=== PATIENT | male | born 2000 ===

== ENCOUNTER 2024-12-25 12:15 | Inpatient (IN) | payer OTHER, SELFPAY ==
[2024-12-25 12:50] VITALS: BMI 23.0
[2024-12-25 12:51] VITALS: BP 124/63; PULSE 63; RESP 18; TEMP 36.6; O2SAT 96
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
--- OUTSIDE RECORDS SUMMARY | 2024-12-25 13:08 | XMS_ITS | Clinical Summary ---
Author Organization [facility] Address [address] [place] [address] Phone Care Team Providers Care Commercial Insulator Name Role Phone Physician, Pcp Unknown Primary Care Provider Cesia vailable Allergies No known active allergies Medications No known medications Encounters Date Type Department Care Team Description 12/25/2024 1:38 AM EDT - 12/25/2024 12:11 PM EDT Emergency [facility] Emergency [address] [place] [address] Silvia Padilla MD Cauchon, Matthew C, Suicidal ideations (Primary Dx) Discharge Disposition: Another Health Care Institution Not Defined from Last 3 Months Social History Tobacco Use Types Packs/Day Years Used Date Smoking Tobacco: Never Assessed Sex and Gender Information Value Date Recorded Sex Assigned at Not on file Legal Sex Male 1:35 AM EDT Gender Identity Not on file Sexual Orientation Not on file Last Filed Vital Signs Vital Sign Reading [...] Mass Index 24.41 12/25/2024 1:57 AM EDT Plan of Treatment Health Maintenance Due Date Last Done Comments Meningococcal B Vaccine (1 of 2 - Standard) 2018 DTaP,Tdap,and Td Vaccines (7 - Td or Tdap) 01/10/2024 01/09/2014, 11/22/2007, 06/17/2004, Additional history exists COVID-19 Vaccine ( season) 2024 Depression Screening 12/25/2024 HIV Screening 12/25/2024 Hepatitis C Screening 12/25/2024 Social Influencers of Health Screening 12/25/2024 Influenza Vaccine (Season Ended) 2025 04/30/2020, 06/20/2019, 06/27/2011, Additional history exists Hepatitis B Vaccines Completed 06/26/2003, 04/15/2003, 02/05/2003, Additional history exists HIB Vaccines Completed 12/22/2003, 06/13, 04/15/2003, Additional history exists Pneumococcal Vaccine: Pediatrics (0 to 5 Years) and At-Risk Patients (6 to 64 Years) Completed 11/18/2004, 06/26/2003, 04/15/2003, Additional history exists Varicella Vaccines Completed 11/22/2007, 12/22/2003 MMR Vaccines Completed 03/13/2008, 12/22/2003 HPV Vaccines Completed 03/30/2017, 01/28/2016 IPV Vaccines Completed 03/30/2017, 06/13, 04/15/2003, Additional history exists Hepatitis A Vaccines Completed 04/05/2018, 03/30/20 17 Meningococcal ACWY Vaccine Completed 06/20/2019, RSV Immunization Patients Under 20 months Aged Out No longer eligible based on patient's age to complete this topic Procedures Procedure Name Priority Date/Time Associated Diagnosis Comments CBC WITH AUTO DIFFERENTIAL STAT 12/25/2024 2:35 AM EDT SALICYLATE LEVEL STAT 12/25/2024 2:35 AM EDT ACETAMINOPHEN LEVEL STAT 12/25/2024 2 :35 AM EDT ETHANOL STAT 12/25/2024 2:35 AM EDT COMPREHENSIVE METABOLIC PANEL STAT 12/25/2024 2:35 AM EDT CBC AND DIFFERENTIAL STAT 12/25/2024 2:35 AM EDT METHADONE SCREEN, URINE STAT 12/25/2024 2:23 AM EDT PHENCYCLIDINE, URINE STAT 12/25/2024 2:23 AM EDT BUPRENORPHINE SCREEN, URINE STAT 12/25/2024 2:23 AM EDT DRUG ABUSE SCREEN 8A PANEL, URINE STAT 12/25/2024 2:23 AM EDT from Last 3 Months Results * (ABNORMAL) CBC auto differential (12/25/2024 2:35 AM EDT) [facility] Signature WBC 8.4 4.8 - 10.8 K/mcL LAB HEMETOLOGY METHOD 12/25/2024 2:42 AM EDT [facility] RBC 4.50 4.50 - 5.50 M/mcL LAB HEMETOLOGY METHOD 12/25/2024 2:42 AM EDT [facility] Hemoglobin 13.4(L) 13.5 - 17.5 g/dL LAB HEMETOLOGY METHOD 12/25/2024 2:42 AM EDT [facility] Hematocrit 38.7(L) 42.0 - 54.0 % LAB HEMETOLOGY METHOD 12/25/2024 2:42 AM EDT [facility] MCV 86.6 79.0 - 98.0 FL LAB HEMETOLOGY METHOD 12/25/2024 2:42 AM EDT [facility] MCH 30.0 27.0 - 32.0 pcg LAB HEMETOLOGY METHOD 12/25/2024 2:42 AM [facility] MCHC 34.6 32.0 - 37.0 g/dL LAB HEMETOLOGY METHOD 12/25/2024 2:42 AM [facility] RDW 11.9 11.0 - 15.0 % LAB HEMETOLOGY METHOD 12/25/2024 2:42 AM [facility] Platelets 209 130 - 400 K/mcL LAB HEMETOLOGY METHOD 12/25/2024 2:42 AM [facility] MPV 11.1(H) 7.0 - 11.0 FL LAB HEMETOLOGY METHOD 12/25/2024 2:42 AM [facility] NRBC 0.0 <1.0 % LAB HEMETOLOGY METHOD 12/25/2024 2:42 AM [facility] NRBC Absolute 0.00 <0.10 K/mcL LAB HEMETOLOGY METHOD 12/25/2024 2:42 AM [facility] Neutrophils Relative 63.8 % LAB HEMETOLOGY METHOD 12/25/2024 2:42 AM [facility] Lymphocytes Relative 30.2 % LAB HEMETOLOGY METHOD 12/25/2024 2:42 AM [facility] Monocytes Relative 4.9 % LAB HEMETOLOGY METHOD 12/25/2024 2:42 AM [facility] Eosinophils Relative 0.5 % LAB HEMETOLOGY METHOD 12/25/2024 2:42 AM [facility] Basophils Relative 0.2 % LAB HEMETOLOGY METHOD 12/25/2024 2:42 AM [facility] Immature Granulocytes Relative 0.4 % LAB HEMETOLOGY METHOD 12/25/2024 2:42 AM [facility] Neutrophils Absolute 5.33 1.50 - 7.00 K/mcL LAB HEMETOLOGY METHOD 12/25/2024 2:42 AM EDT [facility] Lymphocytes Absolute 2.52 1.00 - 5.00 K/[facility] LAB HEMETOLOGY METHOD 12/25/2024 2:42 AM EDT [facility] Monocytes Absolute 0.41 0.20 - 1.00 K/[facility] LAB HEMETOLOGY METHOD 12/25/2024 2:42 AM EDT [facility] Eosinophils Absolute 0.04 0.00 - 0.50 K/[facility] LAB HEMETOLOGY METHOD 12/25/2024 2:42 AM EDT [facility] Basophils Absolute 0.02 0.00 - 0.20 K/[facility] LAB HEMETOLOGY METHOD 12/25/2024 2:42 AM EDT [facility] Immature Granulocytes Absolute 0.03 0.00 - 0.03 K/[facility] LAB HEMETOLOGY METHOD 12/25/2024 2:42 AM EDT [facility] Blood Venous blood specimen / Unknown Venipuncture / Unknown 12/25/2024 2:35 AM EDT 12/25/2024 2:39 AM EDT Silvia Padilla MD LAB BLOOD ORDERABLES Fin al Result [facility] [address] [place] [address], * Ethanol (12/25/2024 2:35 AM EDT) Ethanol Level 6 0 - 10 mg/dL LAB CHEMISTRY METHOD 12/25/2024 3:20 AM EDT [facility] Blood Venous blood specimen / Unknown Venipuncture / Unknown 12/25/2024 2:35 AM EDT 12/25/2024 2:39 AM EDT Silvia Padilla MD LAB BLOOD ORDERABLES Fin al Result Performing Organization Address [facility]/ZIP Co de Phone Number [facility] [address] [place] [address], [place] [phone] * (ABNORMAL) Acetaminophen level (12/25/2024 2:35 AM EDT) Acetaminophen Level <2.0(L) 10.0 - 30.0 mcg/mL LAB CHEMISTRY METHOD 12/25/2024 3:20 AM EDT [facility] Blood Venous blood specimen / Unknown Venipuncture / Unknown 12/25/2024 2:35 AM EDT 12/25/2024 2:39 AM EDT Silvia Padilla MD LAB BLOOD ORDERABLES Fin al Result Performing Organization Address [facility] Co de Phone Number [facility] [address] [place] [address], [place] [phone] * (ABNORMAL) Salicylate level (12/25/2024 2:35 AM EDT) Salicylate Level <1.7(L) 2.0 - 29.0 mg/dL LAB CHEMISTRY METHOD 12/25/2024 3:20 AM EDT [facility] Blood Venous blood specimen / Unknown Venipuncture / Unknown 12/25/2024 2:35 AM EDT 12/25/2024 2:39 AM EDT Silvia Padilla MD LAB BLOOD ORDERABLES Fin al Result Performing Organization Address [facility]/ZIP Co de Phone Number [facility] [address] [place] [address], [place] [phone] * (ABNORMAL) Comprehensive metabolic panel (12/25/2024 2:35 AM EDT) Sodium 140 133 - 145 mmol/L LAB CHEMISTRY METHOD 12/25/2024 3:20 AM EDT [facility] Potassium 3.8 3.5 - 5.5 mmol/L LAB CHEMISTRY METHOD 12/25/2024 3:20 AM [facility] Chloride 108 96 - 110 mmol/L LAB CHEMISTRY METHOD 12/25/2024 3:20 AM [facility] CO2 25 21 - 32 mmol/L LAB CHEMISTRY METHOD 12/25/2024 3:20 AM [facility] Anion Gap 7 3 - 11 LAB CHEMISTRY METHOD 12/25/2024 3:20 AM [facility] Glucose 92 70 - 100 mg/dL LAB CHEMISTRY METHOD 12/25/2024 3:20 AM [facility] BUN 7 5 - 25 mg/dL LAB CHEMISTRY METHOD 12/25/2024 3:20 AM [facility] Creatinine 0.67(L) 0.70 - 1.30 mg/dL LAB CHEMISTRY METHOD 12/25/2024 3:20 AM [facility] eGFR 135 >=60 mL/min/1. 73m2 LAB CHEMISTRY METHOD 12/25/2024 3:20 AM [facility] Comment:Calculation based on the Chronic Kidney Disease Epidemiology Collaboration (CKD-EPI) equation refit without adjustment for race. BUN/Creatinine Ratio 10.4 LAB CHEMISTRY METHOD 12/25/2024 3:20 AM [facility] Calcium 9.8 8.5 - 10.5 mg/dL LAB CHEMISTRY METHOD 12/25/2024 3:20 AM [facility] AST (SGOT) 21 10 - 42 unit/L LAB CHEMISTRY METHOD 12/25/2024 3:20 AM [facility] ALT (SGPT) 22 10 - 60 unit/L LAB CHEMISTRY METHOD 12/25/2024 3:20 AM [facility] Alkaline Phosphatase 52 42 - 121 unit/L LAB CHEMISTRY METHOD 12/25/2024 3:20 AM [facility] Total Protein 7.3 6.0 - 8.0 g/dL LAB CHEMISTRY METHOD 12/25/2024 3:20 AM EDT [facility] Albumin 4.3 3.2 - 5.0 g/dL LAB CHEMISTRY METHOD 12/25/2024 3:20 AM EDT [facility] Total Bilirubin 1.2 0.0 - 1.4 mg/dL LAB CHEMISTRY METHOD 12/25/2024 3:20 AM EDT [facility] Blood Venous blood specimen / Unknown Venipuncture / Unknown 12/25/2024 2:35 AM EDT 12/25/2024 2:39 AM EDT Silvia Padilla MD LAB BLOOD ORDERABLES Fin al Result [facility] [address] [place] [address], [place] [phone] * (ABNORMAL) Drug abuse screen 8a panel, urine (12/25/2024 2:23 AM EDT) Amphetamine Screen, Ur Negative Negative LAB CHEMISTRY METHOD 5 3:05 AM T [facility] Comment:Certain OTC medicati ons containing ephedrine, phenylephrine, pseudoephedrine and phenylpropanolamine can cause false positive results. Barbiturate Screen, Ur Negative Negative LAB CHEMISTRY METHOD 5 3:05 AM EDT [facility] Benzodiazepine Screen, Ur Negative Negative LAB CHEMISTRY METHOD 5 3:05 AM T [facility] Cocaine Screen, Ur Negative Negative LAB CHEMISTRY METHOD 5 3:05 AM [facility] Opiate Screen, Ur Negative Negative LAB CHEMISTRY METHOD 5 3:05 AM [facility] Cannabinoid (THC) Screen, Ur Positive(A ) Negative LAB CHEMISTRY METHOD 5 3:05 AM EDT [facility] Comment:Specimens from patie nts taking pantoprazole sodium (Protonix) have been shown to produce false positive results. Oxycodone Screen, Ur Negative Negative LAB CHEMISTRY METHOD 5 3:05 AM EDT [facility] Fentanyl, Ur Negative Negative LAB CHEMISTRY METHOD 5 3:05 AM EDT [facility] Urine Urine specimen obtained by clean catch procedure / Unknown Non-blood Collection / Unknown 12/25/2024 2:23 AM EDT 12/25/2024 2:38 AM EDT Narrative [facility] - 12/25/2024 3:05 AM EDT [...] ONLY* Silvia Padilla MD LAB URINE ORDERABLES [facility] al Result [facility] [address] [place] [address], * Buprenorphine screen, urine (12/25/2024 2:23 AM EDT) Buprenorphine Screen Urine Negative Negative LAB CHEMISTRY METHOD 12/25/2024 3:05 AM EDT [facility] Urine Urine specimen obtained by clean catch procedure / Unknown Non-blood Collection / Unknown 12/25/2024 2:23 AM EDT 12/25/2024 2:38 AM EDT Narrative [facility] - 12/25/2024 3:05 AM EDT Assay cutoff 5 ng/mL Semi-quantitative assay for screening purposes only. Unconfirmed screening result should not be used for non-medical purposes. *ALTERNATE METHOD CONFIRMATION DONE UPON REQUEST ONLY* Silvia Padilla MD LAB URINE ORDERABLES Fin al Result Performing Organization Address [facility] de Phone Number [facility] [address] [place] [address], [place] [phone] * Methadone, urine (12/25/2024 2:23 AM EDT) Methadone Screen, Urine Negative Negative LAB CHEMISTRY METHOD 12/25/2024 3:05 AM EDT [facility] Comment: Assay cutoff 300 ng/mL [...] ORDERABLES Fin al Result Performing Organization Address [facility] Co de Phone Number [facility] [address] [place] [address], [place] [phone] * Phencyclidine, urine (12/25/2024 2:23 AM EDT) PCP Scrn, Ur Negative Negative LAB CHEMISTRY METHOD 12/25/2024 3:05 AM EDT [facility] Comment: Assay cutoff 25 ng/mL Semi-quantitative assay for screening purposes only. Unconfirmed screening result should not be used for non-medical purposes. *ALTERNATE METHOD CONFIRMATION DONE UPON REQUEST ONLY* Urine Urine specimen obtained by clean catch procedure / Unknown Non-blood Collection / Unknown 12/25/2024 2:23 AM EDT 12/25/2024 2:38 AM EDT us Silvia Padilla MD LAB URINE ORDERABLES Fin al Result [facility] [address] [place] [address], from Last 3 Months Insurance AET[employer] Care Teams Commercial Insulator Relationship Specialty Start Date End Date Physician, Pcp Unknown PCP - General 12/25/24
--- OUTSIDE RECORDS SUMMARY | 2024-12-25 13:08 | XMS_ITS | Clinical Summary ---
Author Organization [address] Address [address] [place] [phone] Care Team Providers Care Rectangular Tank Cooper Name Role Phone Howard Sosa MD Primary Care Prov ider Social History Tobacco Use Types Packs/Day Years Used Date Smoking Tobacco: Never Assessed Sex and Gender Information Value Date Recorded Sex Assigned at Not on file Legal Sex Male 2:09 PM EST Gender Identity Male 08/15/2023 2:54 PM EST Sexual Orientation Not on file Last Filed Vital Signs Vital Sign Reading Time Taken Comments Blood Pressure 159/85 08/15/2023 2:13 PM EST Pulse 87 08/15/2023 2:13 PM EST Temperature 36.6 ??C (97.9 ??F) 08/15/2023 2:13 PM ES T Respiratory Rate 17 08/15/2023 2:13 PM EST Oxygen Saturation 98% 08/15/2023 2:13 PM EST Inhaled Oxygen Concentration - - Weight - - Height - - Body Mass Index - - Plan of Treatment Health Maintenance Due Date Last Done Comments HIV screening 12/11/2015 Hepatitis C screening 2020 DTaP/TDaP Vaccines (7 - Td or Tdap) 01/10/2024 01/09/2014, 11/22/2007, 06/17/2004, Additional history exists Tetanus adult (Td q 10,TDAP once) 01/10/2024 01/09/2014, 11/22/2007, 06/17/2004 Covid-19 vaccine series (1 - 2023-25 season) 2024 Influenza Vaccine Pediatric (Season Ended) 2025 04/30/2020, 06/20/2019, 06/27/2011, Additional history exists Influenza vaccine 04/13/2025 04/30/2020, , 06/27/2011, Additional history exists RSV Immunization (1 - 1-dose 75+ series) 2077 Hepatitis B vaccine series Completed 06/26, 04/15/2003, 02/05/2003, Additional history exists HIB Vaccines Completed 12/22/2003, 06/13, 04/15/2003, Additional history exists Pneumococcal Vaccine (2 - 49 years) Aged Out 11/18/2004, 06/26/2003, 04/15/2003, Additional history exists No longer eligible based on patient's age to complete this topic Varicella Vaccines Completed 11/22/2007, 12/22/2003 MMR Vaccines Completed 03/13/2008, 12/22/2003 HPV vaccine series Completed 03/30/2017, 01/28/2016 IPV Vaccines Completed 03/30/2017, 06/13, 04/15/2003, Additional history exists Hepatitis A Vaccines Completed 04/05/2018, 03/30/20 17 Meningococcal Vaccine Completed 06/20/2019, 015 Rotavirus Vaccines Aged Out No longer eligible based on patient's age to complete this topic Insurance AETNA AET[employer] Care Teams Rectangular Tank Cooper Relationship Specialty Start Date End Date Howard Sosa MD [address] [place] [phone] PCP - General Family Medicine 08/16/23
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
[2024-12-25 20:00] VITALS: BP 150/98; PULSE 71; RESP 16; TEMP 37.2; O2SAT 98
[2024-12-26] MEDS: hydrOXYzine HCL 25 MG TABLET PO ×2 (00:18→09:15)
--- NOTE | 2024-12-26 06:19 | PC.NURSE ---
Patient c/o difficulty sleeping due to his roommate's snoring. Patient was asked if he would be willing to go to [facility] so that another patient from [facility] could be moved up to [facility]. Patient very willing to make the move. Report given to [facility].
[2024-12-26 07:42] VITALS: BP 111/55; PULSE 57; RESP 14; TEMP 36.8; O2SAT 98
--- NOTE | 2024-12-26 08:39 | P.HPPS_ITS ---
HPI Date of Service: 12/26/24 Chief Complaint: SI; autism spectrum disorder Sources of Information: patient interviewed, chart reviewed and crisis/core team assessment reviewed HPI Subjective Notes: Giron Warning and Conditional Voluntary Narrative: Patient is a 24-year-old male with hx of PTSD and autism spectrum disorder, who presented to crisis d/t passive suicidal thoughts secondary to increased depression and anxiety from life stressors. Per crisis report, patient was seen at [facility] due to increased depression, anxiety and passive suicidal thoughts. patient reports multiple life stressors such as him and his girlfriend taking a break, him punching his car steering wheel and breaking his right hand and being financially stable. pt is not currently on any psychiatric medications. He reports poor sleep and appetite. Patient denies HI/AH/AH. Patient reports daily marijuana use; denies any other substance use. During admission assessment, pt presents alert and oriented x3. calm and cooperative. patient reports feeling stressed ; pt stated, there is a lot going on in my life. I broke my hand on November 12 after punching my steering wheel so I can't work because of it. I live alone and my parents are helping me with expenses which I don't like. Also things in my relationship are going downhill because she lives far away . He reports hx of self injurious behavior of head banging and tightening a belt around his neck but removing it . Patient reports poor sleep and appetite. He does not have outpatient psychiatric providers and denies ever taking psychiatric mediations. Pt is requesting to be started on psychiatric medications for mood, sleep and anxiety. Discussed remeron and seroquel; risks/benefits reviewed; pt agreed to trial. Pt would like referral to outpatient psychiatric providers. denies HI/VH/AH. Past Psychiatric History: First inpatient psychiatric hospitalization. Does not have outpatient psychiatric providers. Denies history of psychiatric medications. Medical Evaluation Reviewed: Yes PMFSH Family History: unknown Social History: lives alone. single. no kids. 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 high school diploma. Substance History: smokes marijuana daily Trauma History: yes Diagnostics Vital Signs (24Hr): Vital Signs - 24 hr 12/25/24 12:51 12/25/24 20:00 12/26/24 07:42 Temperature 97.8 F 99.0 F 98.2 F Pulse Rate 63 71 57 Respiratory Rate 18 16 14 Blood Pressure 124/63 150/98 H 111/55 L Pulse Oximetry 96 98 98 Oxygen Delivery Method Room Air Room Air Room Air BMI result Body Mass Index 23.0 Meds/Allergies Meds Home Medications ?Medication ?Instructions ?Recorded ?Confirmed ?Type cholecalciferol (vitamin D3) 2XW supplement 12/25/24 History Allergies Allergies Allergy/AdvReac Type Severity Reaction Status Date / Time No Known Allergies Allergy Verified 12/25/24 12:15 Mental Status Exam Mental Status Exam Patient Appearance: Appropriate Patient Orientation: Person, Place, Time and Situation Level of Consciousness: Awake and Alert Patient Behavior: Appropriate, Cooperative and Good Eye Contact Mood Description: Depressed and Anxious Affect Description: Calm Ability to Follow Directions: Good Speech Pattern: Clear and Appropriate Memory Description: Intact Hallucinations: None Delusions: Not Present Thought Process: Intact and Goal Oriented Thought Content: positive for Intact Assessment & Plan Assessment & Plan (1) Adjustment disorder: Status: Acute Code(s): F43.20 - Adjustment disorder, unspecified (2) PTSD (post-traumatic stress disorder): Status: Acute Code(s): F43.10 - Post-traumatic stress disorder, unspecified (3) Autism spectrum disorder: Status: Acute Code(s): F84.0 - Autistic disorder Plan Patient is a 24-year-old male with hx of PTSD and autism spectrum disorder, who presented to crisis d/t passive suicidal thoughts secondary to increased depression and anxiety from life stressors. Plan: CV 15 minute safety checks obtian collateral Start: Remeron 15mg PO bedtime Seroquel 25mg PO BID PRN encourage groups referral to outpatient psychiatric providers discharge planning Patient educated on: diagnosis and medication risk/benefits Reason for continued inpatient stay Substantial Risk for: harm to self and med/psych decompensation Statement Statement: I have reviewed the history and physical and performed a pertinent examination on my patient. No changes have occurred unless specified. If the History and Physical was not performed prior to admission, the Hospitalist's service will be consulted for completing the admission physical. Time Spent With Patient Time: Total time managing care of this patient today _60___ minutes.
[2024-12-26 08:44] LABS: Estimated Average Glucose 91 mg/dL; Hemoglobin A1C 112.3697 umol/L; Hemoglobin A1c % 4.8 % (<6.0)
[2024-12-26 08:54] LABS: Cholesterol 138 mg/dL (<200); HDL Cholesterol 41 mg/dL (>40); LDL Cholesterol Calculated 84 mg/dL (<100); Magnesium 2.2 mg/dL (1.6-2.6); Triglycerides 67 mg/dL (<150)
[2024-12-26 09:10] LABS: Free T4 (Free Thyroxine) 1.15 ng/dL (0.71-1.85); Thyroid Stimulating Hormone 2.41 uIU/mL (0.32-4.0)
[2024-12-26] MEDS: Cholecalciferol (Vitamin D3) 25 MCG TABLET PO (09:15)
[2024-12-26 09:18] LABS: Folate 10.3 ng/mL (> or = 4.0); Vitamin B12 363 pg/mL (200-900)
[2024-12-26 20:00] VITALS: BP 121/71; PULSE 84; RESP 16; TEMP 36.9; O2SAT 98
[2024-12-26] MEDS: Mirtazapine 15 MG TABLET PO (22:16)
--- NOTE | 2024-12-27 07:27 | HO.PSYCHPN ---
Subjective Subjective Date of Service: 12/27/24 Reason For Visit: SI; autism spectrum disorder Subjective Notes: Conditional Voluntary Interim History: met with patient. Discussed with Nursing. Slept 7 hours with as needed medications. Is depressed and anxious. Pleasant. Attending groups. With policy writer sales reports that he would like nighttime medication to be scheduled to maintain good sleep. Reports this would just be in the hospital as home is easier. Reports himself that mood is slowly improving. No SI. No agitation or psychosis. Feeling safe Medication Compliance: Yes Side effects from medications: No Attending Groups: Yes Review of Systems Acute medical concerns: No Review of Systems Review of Systems unremarkable Mental Status Exam Mental Status Exam Patient Appearance: Appropriate Patient Orientation: Person, Place, Time and Situation Level of Consciousness: Awake and Alert Patient Behavior: Appropriate, Cooperative and Good Eye Contact Mood Description: Depressed ( less) and Anxious ( less) Affect Description: Calm Ability to Follow Directions: Good Speech Pattern: Clear and Appropriate Memory Description: Intact Hallucinations: None Delusions: Not Present Thought Process: Intact and Goal Oriented Thought Content: positive for Intact Diagnostics Vital Signs (24Hr): Vital Signs - 24 hr 12/26/24 07:42 12/26/24 20:00 12/26/24 20:00 Temperature 98.2 F 98.5 F 98.5 F Pulse Rate 57 84 84 Respiratory Rate 14 16 16 Blood Pressure 111/55 L 121/71 121/71 Pulse Oximetry 98 98 98 Oxygen Delivery Method Room Air Room Air Room Air BMI result Body Mass Index 23.0 Labs Labs: Laboratory Results - last 48 hr 12/26/24 07:45 Estimat Average Glucose 91 Hemoglobin A1c % 4.8 Magnesium 2.2 Triglycerides 67 Cholesterol 138 LDL Cholesterol, Calc 84 HDL Cholesterol 41 Vitamin B12 363 Folate 10.3 TSH 2.41 Free T4 1.15 Medications Medications Current Medications Acetaminophen (Acetaminophen 325 Mg Tablet) 650 mg PO Q6H PRN PRN Reason: Headache/Pain, Scale 1-10 Al Hydroxide/Mg Hydroxide (Magnesium Hydrox/Alum Hydrox 30 Ml Oral.Susp) 30 ml PO Q6H PRN PRN Reason: Heartburn/Nausea Hydroxyzine HCl (Hydroxyzine Hcl 25 Mg Tablet) 25 mg PO Q6H PRN PRN Reason: mild anxiety Last Admin: 12/26/24 09:15 Dose: 25 mg Magnesium Hydroxide (Milk Of Magnesia 30 Ml Oral.Susp) 30 ml PO DAILY PRN PRN Reason: Constipation Mirtazapine (Mirtazapine 15 Mg Tablet) 15 mg PO BEDTIME [facility]LE Last Admin: 12/26/24 22:16 Dose: 15 mg Quetiapine Fumarate (Quetiapine Fumarate 25 Mg Tablet) 25 mg PO BID PRN PRN Reason: anxiety/agitation Trazodone HCl (Trazodone Hcl 50 Mg Tablet) 50 mg PO BEDTIME MRX1 PRN PRN Reason: Insomnia Vitamin D (Cholecalciferol (Vitamin D3) 25 Mcg Tablet) 25 mcg PO DAILY [facility]LE Last Admin: 12/26/24 09:15 Dose: 25 mcg Allergies Allergies Allergy/AdvReac Type Severity Reaction Status Date / Time No Known Allergies Allergy Verified 12/25/24 12:15 Assessment & Plan Assessment & Plan (1) Adjustment disorder: Status: Acute Code(s): F43.20 - Adjustment disorder, unspecified (2) PTSD (post-traumatic stress disorder): Status: Acute Code(s): F43.10 - Post-traumatic stress disorder, unspecified (3) Autism spectrum disorder: Status: Acute Code(s): F84.0 - Autistic disorder Plan Patient is a 24-year-old male with hx of PTSD and autism spectrum disorder, who presented to crisis d/t passive suicidal thoughts secondary to increased depression and anxiety from life stressors. Plan: CV 15 minute safety checks obtian collateral Start: Remeron 15mg PO bedtime Seroquel 25mg PO BID PRN encourage groups referral to outpatient psychiatric providers discharge planning 12/27: schedule trazodone at bedtime for sleep while in hospital setting. This will not need to be continued upon discharge. Otherwise no changes Reason for continued inpatient stay Substantial Risk for: rapid decompensation Time Spent With Patient Time: Total time managing care of this patient today ____ minutes.
[2024-12-27 08:00] VITALS: BP 112/60; PULSE 62; RESP 16; TEMP 36.6; O2SAT 98
[2024-12-27] MEDS: Cholecalciferol (Vitamin D3) 25 MCG TABLET PO (09:07)
[2024-12-27 20:00] VITALS: BP 140/70; PULSE 79; RESP 16; TEMP 36.3; O2SAT 99
[2024-12-27] MEDS: traZODone HCL 50 MG TABLET PO (22:40)
[2024-12-27] MEDS: Mirtazapine 15 MG TABLET PO (22:40)
[2024-12-28 08:00] VITALS: BP 121/56; PULSE 53; RESP 16; TEMP 36.4; O2SAT 90
[2024-12-28] MEDS: Cholecalciferol (Vitamin D3) 25 MCG TABLET PO (08:14)
--- NOTE | 2024-12-28 08:38 | P.PNPSI_ITS ---
Subjective Subjective Date of Service: 12/28/24 Reason For Visit: SI; autism spectrum disorder Subjective Notes: Conditional Voluntary Medical Problems Affecting Mental Status: No Interim History: States he wants to be discharged as soon as possible to make sure that his landlord deals with a raccoon that has been living in his roof. Has been reading. Social with others. Eating and sleeping OK. Medication Compliance: Yes Side effects from medications: No Attending Groups: Yes Review of Systems Acute medical concerns: No Medical Review of Systems: unchanged Review of Systems Review of Systems Yes unobtainable due to endotracheal tube, Unobtainable due to mental condition, Unobtainable due to mental status and Other Mental Status Exam Mental Status Exam Patient Appearance: Well Grooomed Patient Orientation: Person, Place, Time and Situation Level of Consciousness: Alert Patient Behavior: Appropriate Mood Description: Calm Affect Description: Cheerful Patient Cognition Impaired: No Ability to Follow Directions: Excellent Speech Pattern: Clear Memory Description: Intact Hallucinations: None Delusions: Not Present Thought Process: Goal Oriented Thought Content: positive for Intact Judgement: Good Diagnostics Vital Signs (24Hr): Vital Signs - 24 hr 12/27/24 20:00 12/28/24 08:00 Temperature 97.3 F 97.6 F Pulse Rate 79 53 Respiratory Rate 16 16 Blood Pressure 140/70 H 121/56 L Pulse Oximetry 99 90 L Oxygen Delivery Method Room Air Room Air BMI result Body Mass Index 23.0 Labs Labs: Laboratory Results - last 48 hr 12/26/24 07:45 Estimat Average Glucose 91 Hemoglobin A1c % 4.8 Magnesium 2.2 Triglycerides 67 Cholesterol 138 LDL Cholesterol, Calc 84 HDL Cholesterol 41 Vitamin B12 363 Folate 10.3 TSH 2.41 Free T4 1.15 Medications Medications Current Medications Acetaminophen (Acetaminophen 325 Mg Tablet) 650 mg PO Q6H PRN PRN Reason: Headache/Pain, Scale 1-10 Al Hydroxide/Mg Hydroxide (Magnesium Hydrox/Alum Hydrox 30 Ml Oral.Susp) 30 ml PO Q6H PRN PRN Reason: Heartburn/Nausea Hydroxyzine HCl (Hydroxyzine Hcl 25 Mg Tablet) 25 mg PO Q6H PRN PRN Reason: mild anxiety Last Admin: 12/26/24 09:15 Dose: 25 mg Magnesium Hydroxide (Milk Of Magnesia 30 Ml Oral.Susp) 30 ml PO DAILY PRN PRN Reason: Constipation Mirtazapine (Mirtazapine 15 Mg Tablet) 15 mg PO BEDTIME [facility] Last Admin: 12/27/24 22:40 Dose: 15 mg Quetiapine Fumarate (Quetiapine Fumarate 25 Mg Tablet) 25 mg PO BID PRN PRN Reason: anxiety/agitation Trazodone HCl (Trazodone Hcl 50 Mg Tablet) 50 mg PO BEDTIME MRX1 PRN PRN Reason: Insomnia Trazodone HCl (Trazodone Hcl 50 Mg Tablet) 50 mg PO BEDTIME [facility] Last Admin: 12/27/24 22:40 Dose: 50 mg Vitamin D (Cholecalciferol (Vitamin D3) 25 Mcg Tablet) 25 mcg PO DAILY [facility] Last Admin: 12/28/24 08:14 Dose: 25 mcg Allergies Allergies Allergy/AdvReac Type Severity Reaction Status Date / Time No Known Allergies Allergy Verified 12/25/24 12:15 Assessment & Plan Assessment & Plan (1) Adjustment disorder: Status: Acute Code(s): F43.20 - Adjustment disorder, unspecified (2) PTSD (post-traumatic stress disorder): Status: Acute Code(s): F43.10 - Post-traumatic stress disorder, unspecified (3) Autism spectrum disorder: Status: Acute Code(s): F84.0 - Autistic disorder Plan Patient is a 24-year-old male with hx of PTSD and autism spectrum disorder, who presented to crisis d/t passive suicidal thoughts secondary to increased depression and anxiety from life stressors. Plan: CV 15 minute safety checks obtian collateral Start: Remeron 15mg PO bedtime Seroquel 25mg PO BID PRN encourage groups referral to outpatient psychiatric providers discharge planning 12/27: schedule trazodone at bedtime for sleep while in hospital setting. This will not need to be continued upon discharge. Otherwise no changes 12/28: no med changes Reason for continued inpatient stay Substantial Risk for: harm to self Time Spent With Patient Time: Total time managing care of this patient today ____ minutes.
[2024-12-28 19:45] VITALS: BP 140/77; PULSE 88; RESP 16; TEMP 36.6; O2SAT 96
[2024-12-28] MEDS: Mirtazapine 15 MG TABLET PO (21:53)
[2024-12-28] MEDS: traZODone HCL 50 MG TABLET PO (21:53)
[2024-12-29 08:00] VITALS: BP 114/58; PULSE 61; RESP 16; TEMP 36.8; O2SAT 98
[2024-12-29] MEDS: Cholecalciferol (Vitamin D3) 25 MCG TABLET PO (08:17)
--- NOTE | 2024-12-29 11:29 | P.DS_ITS ---
DS: Providers Provider Date of Service: 12/29/24 Date of admission: 12/25/24 12:15 Date of discharge: 12/29/24 Primary care physician: Howard Roberts MD Consults: 12/25/24 14:01 Consult to Hospitalist Routine Comment: Consulting Provider: [facility] Reason For Exam: Transfer pt DS: Diagnosis Discharge Diagnosis (1) Adjustment disorder: Status: Acute (2) PTSD (post-traumatic stress disorder): Status: Acute (3) Autism spectrum disorder: Status: Acute DS: Medications Discharge Medications Home Medications: Home Medications ?Medication ?Instructions ?Recorded ?Confirmed cholecalciferol (vitamin D3) 2XW supplement 12/25/24 Previous Rx's ?Medication ?Instructions ?Recorded mirtazapine 15 mg tablet 15 mg PO BEDTIME 30 days #30 tabs 12/29/24 trazodone 50 mg tablet 50 mg PO BEDTIME 30 days #30 tabs 12/29/24 Mental Status Exam Mental Status Exam Narrative: adequately dressed and groomed. cooperative, no PMA/PMR. incr amount of speech, nml rate and loudness. thoughts digressive. affect constricted, normo- intense, non-labile. mood pretty good. denies SI/SIBI/HI/AVH. Data Data Completed and Pending Completed studies during hospitalization [Text1]: 12/26/24 07:45 Estimat Average Glucose 91 Hemoglobin A1c % 4.8 Magnesium 2.2 Triglycerides 67 Cholesterol 138 LDL Cholesterol, Calc 84 HDL Cholesterol 41 Vitamin B12 363 Folate 10.3 TSH 2.41 Free T4 1.15 DS: Summary Hospital Course Hospital Course: per 12/26 admission note: HPI Subjective Notes: Giron Warning and Conditional Voluntary Narrative: Patient is a 24-year-old male with hx of PTSD and autism spectrum disorder, who presented to crisis d/t passive suicidal thoughts secondary to increased depression and anxiety from life stressors. Per crisis report, patient was seen at [facility] due to increased depression, anxiety and passive suicidal thoughts. patient reports multiple life stressors such as him and his girlfriend taking a break, him punching his car steering wheel and breaking his right hand and being financially stable. pt is not currently on any psychiatric medications. He reports poor sleep and appetite. Patient denies HI/AH/AH. Patient reports daily marijuana use; denies any other substance use. During admission assessment, pt presents alert and oriented x3. calm and cooperative. patient reports feeling stressed ; pt stated, there is a lot going on in my life. I broke my hand on November 12 after punching my steering wheel so I can't work because of it. I live alone and my parents are helping me with expenses which I don't like. Also things in my relationship are going downhill because she lives far away . He reports hx of self injurious behavior of head banging and tightening a belt around his neck but removing it . Patient reports poor sleep and appetite. He does not have outpatient psychiatric providers and denies ever taking psychiatric mediations. Pt is requesting to be started on psychiatric medications for mood, sleep and anxiety. Discussed remeron and seroquel; risks/benefits reviewed; pt agreed to trial. Pt would like referral to outpatient psychiatric providers. denies HI/VH/AH. Past Psychiatric History: First inpatient psychiatric hospitalization. Does not have outpatient psychiatric providers. Denies history of psychiatric medications. Medical Evaluation Reviewed: Yes PMFSH Family History: unknown Social History: lives alone. single. no kids. works repair department manager. high school diploma. Substance History: smokes marijuana daily Trauma History: yes Precis: Patient is a 24-year-old male with hx of PTSD and autism spectrum disorder, who presented to crisis d/t passive suicidal thoughts secondary to increased depression and anxiety from life stressors. 12/26: Start: Remeron 15mg PO bedtime. Seroquel 25mg PO BID PRN. encourage groups. referral to outpatient psychiatric providers. discharge planning. 12/27: schedule trazodone at bedtime for sleep while in hospital setting. This will not need to be continued upon discharge. Otherwise no changes. 12/28: no med changes. 12/29: pt requesting discharge. no safety concerns. meds reviewed, reconciled, prescribed. aftercare reviewed. discharge as per request. Time Spent with Patient Time attestation: Total time managing care of this patient today __35__ minutes. Discharge Plan Discharge Anticipated Discharge Date/Time: 12/29/24 17:00 Patient Disposition: Home, Self-Care Discharge Diagnosis: PTSD, Chronic Autism Spectrum Disorder Depressive Disorder Referrals: Eileen Godoy (therapist) [Other] - 1 Week (Follow up with you provider when discharged. ) [facility] [Other] - 1 Week (walk in hours are Sunday-Sunday 10a-12pm Please bring your discharge paperwork, ID and insurance card with you. ) Howard Michel MD [Primary Care Provider] - 01/08/25 2:15 pm (12-29-24 Your follow up appt has been scheduled with Jazlyn Salinas on 01-08-25 @ 2:15pm) Discharge Medications: New trazodone 50 mg Tablet 50 mg PO BEDTIME 30 Days Qty: 30 0RF mirtazapine 15 mg Tablet 15 mg PO BEDTIME 30 Days Qty: 30 0RF Continued cholecalciferol (vitamin D3) 2XW Patient Comments: Patient is unsure of the dose but he takes it twice a week when he remembers. Discharge Orders: Discharge Order (Routine); Ordered 12/29/24 Ordered By: Haja Marie Diet: Advance to usual diet Activity on Discharge: As tolerated Stand Alone Forms: Patient Portal Discharge page, Community Support Print Language: Azeri Care Plan Goals: remain safe and stable in the outpatient treatment setting Health Concerns: none Plan of Treatment: take medications as prescribed, attend appointments as scheduled Assessment: not at imminent risk of harm to self or others
== END 2024-12-29 16:35 | disposition home or self-care (01) | DRG 882 ==
LOC: HO.PM5 15:23 → HO.PADLT16 12-26 06:17
PROVIDERS: Clinical Nurse Specialist Psychiatric/Mental Health, Adult; Admitting Provider Psychiatry & Neurology Psychiatry; PCP Family Medicine; Responsible Provider Registered Nurse; Visit Provider Psychiatry & Neurology Psychiatry
DX: F43.20 Adjustment disorder, unspecified (principal); F84.0 Autistic disorder; F43.12 Post-traumatic stress disorder, chronic; Z79.899 Other long term (current) drug therapy
CPT/HCPCS: 36415; 80061; 82607; 82746; 83036; 83735; 84439; 84443

== ENCOUNTER → 2024-12-25 12:15 | Outpatient (BNV) | payer OTHER, BC, SELFPAY | PROVIDERS: Admitting Provider Psychiatry & Neurology Psychiatry; PCP Family Medicine; Visit Provider Nurse Practitioner Family | DX: Z00.8 Encounter for other general examination (principal) | CPT/HCPCS: 99429 ==

== ENCOUNTER → 2024-12-25 12:15 | Outpatient (BNV) | payer OTHER, SELFPAY | PROVIDERS: Admitting Provider Psychiatry & Neurology Psychiatry; PCP Family Medicine; Responsible Provider Registered Nurse; Visit Provider Psychiatry & Neurology Psychiatry | DX: F43.20 Adjustment disorder, unspecified (principal); F43.11 Post-traumatic stress disorder, acute; F84.0 Autistic disorder | CPT/HCPCS: 90792; 99231; 99232; 99239 ==